=== PATIENT | male | born 1970 | race Caucasian/White ===

== ENCOUNTER 2021-03-04 10:02 | Emergency (ER) | payer BC, OTHER ==
[~2021-03-04] VITALS: Ht 177.8 cm; Wt 81.7 kg
[2021-03-04] MEDS ORDERED: OMEPRAZOLE40 MG PO (10:18)
[2021-03-04] MEDS ORDERED: FEXOFENADINE H180 MG PO (10:18)
[2021-03-04] MEDS ORDERED: PRINIVIL20 M1 PO (10:18)
[2021-03-04] MEDS ORDERED: CEPHALEXIN500 MG PO (11:25)
[2021-03-04 11:37] VITALS: BP 136/73
== END 2021-03-04 11:37 | disposition home or self-care (01) ==
LOC: ER 10:02
DX: S41.112A Laceration without foreign body of left upper arm, initial encounter (principal); Z79.899 Other long term (current) drug therapy; Z72.89 Other problems related to lifestyle; W29.8XXA Contact with other powered hand tools and household machinery, initial encounter; Y93.89 Activity, other specified; Y92.89 Other specified places as the place of occurrence of the external cause; Y99.8 Other external cause status